=== PATIENT | female | born 1955 | race Hispanic/Latino ===

== ENCOUNTER 2018-11-03 20:09 | Emergency (ER) | payer MEDICARE, OTHER ==
[~2018-11-03 20:09] MED LIST: AMOX600S16 PO; LEVO112T7 PO; TRAM-355 PO
[2018-11-03 20:40] LABS: APPEARANCE,URINE Clear (CLEAR); BILIRUBIN,URINE Negative (NEGATIVE); COLOR,URINE Yellow (YELLOW); GLUCOSE, URINE (UA) Negative (NEGATIVE); KETONES,URINE Negative (NEGATIVE); LEUKOCYTE ESTERASE ,URINE Trace (NEGATIVE); NITRATE,URINE Negative (NEGATIVE); OCCULT BLOOD,URINE Negative (NEGATIVE); PROTEIN,URINE Negative (NEGATIVE); UROBILINOGEN,URINE 0.2 mg/dL (0.2-1.0)
[2018-11-03 20:42] LABS: BASOPHILS % (AUTO) 1.2 % (0.0-5.0); EOSINOPHILS % (AUTO) 6.3 % (0.0-8.0); MEAN CORPUSCULAR HEMOGLOBIN 30.7 pg (27.0-33.0); MEAN CORPUSCULAR HGB CONC 34.1 g/dL (32.0-36.0); MEAN CORPUSCULAR VOLUME 89.9 fL (79-99); MONOCYTES % (AUTO) 8.6 % (3.0-13.0); NEUTROPHILS % (AUTO) 47.9 % (40.0-77.0); NUCLEATED RED BLOOD CELLS 0.1 % (0.0-0.19); PLATELET COUNT (AUTO) 255 K/uL (130-400); RED BLOOD CELL COUNT(AUTO) 4.67 MIL/uL (4.00-5.50); RED CELL DISTRIBUTION WIDTH 13.7 % (11.0-15.5); WHITE BLOOD COUNT (AUTO) 9.5 K/uL (4.8-10.8)
[2018-11-03 20:54] LABS: BILIRUBIN,TOTAL 0.2 mg/dL (0.2-1.0); TOTAL PROTEIN, SERUM 7.7 g/dL (6.0-8.3)
[2018-11-03 21:08] LABS: BACTERIA,URINE Rare /HPF (None Seen); RBC,URINE 0-1 /HPF (0-1)
[2018-11-03 21:09] LABS: SQUAMOUS EPITHELIAL CELL,UR None Seen /HPF (0-2); TRANSITIONAL EPI CELLS,URINE Rare /HPF (None Seen)
[2018-11-03] MEDS ORDERED: ONDANSETRON HCL 4 MG/2 ML VIAL ONE (21:18)
[2018-11-03] MEDS ORDERED: FAMOTIDINE/PF 20 MG/2 ML VIAL IV ONE (21:19)
[2018-11-03] MEDS ORDERED: FENTANYL CITRATE PF 50 MCG/1 ML 2ML VIAL ONE (21:19)
[2018-11-03] MEDS ORDERED: KETOROLAC TROMETHAMINE 15MG/ML ONE (22:39)
[2018-11-04] MEDS ORDERED: CYCLOBENZAPRINE HCL 10 MG TABLET ONE (02:00)
[2018-11-04] MEDS ORDERED: LIDOCAINE 5% TOPICAL PATCH TP ONE (02:00)
== END 2018-11-03 23:57 | disposition home or self-care (01) ==
LOC: EDH 20:09
DX: R10.12 Left upper quadrant pain (principal); E07.9 Disorder of thyroid, unspecified; Z90.89 Acquired absence of other organs; Z90.49 Acquired absence of other specified parts of digestive tract; Z90.710 Acquired absence of both cervix and uterus
CPT/HCPCS: 36415; 71046; 74176; 80053; 81001; 83690; 85025; 93005; 96374; 96375; 99285; J1885; J2405; J3010; J3490

== ENCOUNTER 2024-02-04 08:01 | Emergency (ER) | payer OTHER ==
[~2024-02-04] VITALS: Ht 149.9 cm; Wt 67.1 kg
[~2024-02-04 08:01] MED LIST changes: -AMOX600S16 PO; +AMOX600S42 PO; -TRAM-355 PO; +TRAM-543 PO
[2024-02-04 08:51] LABS: HEMATOCRIT 38.3 % (36-48); MEAN CORPUSCULAR HEMOGLOBIN 30.1 pg (27.0-33.0); MEAN CORPUSCULAR HGB CONC 33.7 g/dL (32.0-36.0); MEAN CORPUSCULAR VOLUME 89.5 fL (79-99); RED BLOOD CELL COUNT(AUTO) 4.28 MIL/uL (4.00-5.50); RED CELL DISTRIBUTION WIDTH 12.6 % (11.0-15.5); WHITE BLOOD COUNT (AUTO) 14.6 K/uL (4.8-10.8)
[2024-02-04] MEDS: MORPHINE 2 MG SYG IVP ONE (09:15)
[2024-02-04 09:16] LABS: CREATININE 0.8 mg/dL (0.5-1.0); POTASSIUM 3.9 mmol/L (3.5-5.1)
[2024-02-04 09:48] LABS: APPEARANCE,URINE CLEAR (CLEAR); BILIRUBIN,URINE NEGATIVE (NEGATIVE); COLOR,URINE COLORLESS (YELLOW); GLUCOSE, URINE (UA) NEGATIVE (NEGATIVE); KETONES,URINE NEGATIVE (NEGATIVE); LEUKOCYTE ESTERASE ,URINE NEGATIVE Leu/uL (NEGATIVE); NITRATE,URINE NEGATIVE (NEGATIVE); PH,URINE 5.5 (5.0-8.0); PROTEIN,URINE 50 mg/dL (NEGATIVE); UROBILINOGEN,URINE 0.2 mg/dL (0.2-1.0)
[2024-02-04 10:02] LABS: ADD UA MICROSCOPIC YES
[2024-02-04] MEDS: 0.9% NACL 500ML IV.SOLN 500 ML IV ONE (10:19)
[2024-02-04] MEDS: DIAZEPAM 5 MG/ML 2 ML SYG IVP ONE (10:19)
[2024-02-04 10:26] LABS: WBC,URINE 0-1 /HPF (0-1)
[2024-02-04] MEDS: acetaMINOPHEN 500 MG TABLET PO ONE (11:46)
[2024-02-04] MEDS: LABETALOL 20MG SYG IV ONE (11:47)
[2024-02-04] MEDS: LIDOCAINE 5% TOPICAL PATCH TP ONE (13:16)
[2024-02-04] MEDS ORDERED: DIAZ2TAB PO (13:17)
[2024-02-04 13:21] VITALS: BP 172/83; PULSE 95; RESP 19; O2SAT 96
[2024-02-04 14:23] LABS: BASOPHILS % (MANUAL) 1 % (0-2); EOSINOPHILS % (MANUAL) 2 % (1-6); LYMPHOCYTES % (MANUAL) 6 % (22-44); MAN.DIFF COMMENT-IMPRESSION MANUAL DIFFERENTIAL; MONOCYTES % (MANUAL) 4 % (2-9); PLATELET MORPHOLOGY COMMENT ADEQUATE; REACTIVE LYMPHOCYTES 13 % (0-0); SEGMENTED NEUTROPHILS % 74 % (40-70); TOTAL CELLS COUNTED 100
== END 2024-02-04 14:36 | disposition home or self-care (01) ==
LOC: EDH 08:01
DX: M62.838 Other muscle spasm (principal); E11.9 Type 2 diabetes mellitus without complications; E78.00 Pure hypercholesterolemia, unspecified; E03.9 Hypothyroidism, unspecified; Z90.49 Acquired absence of other specified parts of digestive tract; Z79.899 Other long term (current) drug therapy
CPT/HCPCS: 99285; 96374; 96375; 71045; 96361; 80048; 85027; 87040; 82948; 83605; 86140; 81001; 36415; 84145; J7040; J2270; J3360

== ENCOUNTER 2024-04-15 18:18 | Emergency (ER) | payer OTHER ==
[~2024-04-15] VITALS: Ht 149.9 cm; Wt 67.6 kg
[~2024-04-15 18:18] MED LIST changes: +DIAZ2TAB PO
[2024-04-15] MEDS: acetaMINOPHEN 325 MG TAB PO ONE (18:46)
[2024-04-15] MEDS: ketOROlac 15MG/ML VIAL (15MG/ML) IM ONE (18:47)
[2024-04-15] MEDS ORDERED: CYCL10TA16 PO (19:59)
[2024-04-15 20:02] VITALS: BP 160/58; PULSE 73; RESP 18; TEMP 97.8; O2SAT 100
== END 2024-04-15 20:18 | disposition home or self-care (01) ==
LOC: EDH 18:18
DX: S86.911A Strain of unspecified muscle(s) and tendon(s) at lower leg level, right leg, initial encounter (principal); M79.661 Pain in right lower leg; E03.9 Hypothyroidism, unspecified; E11.9 Type 2 diabetes mellitus without complications; E78.00 Pure hypercholesterolemia, unspecified; I10 Essential (primary) hypertension; Z90.5 Acquired absence of kidney; Z90.710 Acquired absence of both cervix and uterus; W18.39XA Other fall on same level, initial encounter; Y93.01 Activity, walking, marching and hiking; Y92.89 Other specified places as the place of occurrence of the external cause; Y99.8 Other external cause status
CPT/HCPCS: 99284; 73552; 73562; 73590; 96372; J1885